=== PATIENT | male | born 2000 | race Caucasian/White ===

== ENCOUNTER 2018-05-31 19:47 | Emergency (ER) | payer OTHER ==
[2018-05-31 20:40] LABS: BILIRUBIN,URINE NEGATIVE (NEGATIVE); GLUCOSE, URINE (UA) NEGATIVE (NEGATIVE); KETONES,URINE (UA) NEGATIVE (NEGATIVE); LEUKOCYTE ESTERASE, URINE NEGATIVE (NEGATIVE); NITRITE,URINE NEGATIVE (NEGATIVE); OCCULT BLOOD,URINE NEGATIVE (NEGATIVE); PROTEIN,URINE NEGATIVE (NEGATIVE); UROBILINOGEN,URINE 0.2 (NORMAL) E.U./dL (NORMAL)
[2018-05-31 20:44] LABS: CLARITY,URINE CLEAR (CLEAR)
--- NOTE | 2018-05-31 22:18 | ED Physician Documentation ---
PD HPI MALE - Stated complaint Stated Complaint: MALE - Chief complaint Chief Complaint: General - History obtained from History obtained from: Patient - History of Present Illness Timing - onset: How many weeks ago (1) Timing - duration: Weeks (1) Timing - details: Gradual onset, Still present Associated symptoms: Testiclar pain. No: Dysuria, Urinary frequency, Discharge, Genital sore / lesion, Scrotal swelling, Abdominal pain PD HPI MALE CONTRIB FACTORS: Sexually active (infrequent, not recent) Similar symptoms before: Has not had sx before Recently seen: Not recently seen Review of Systems Constitutional: denies: Fever, Chills Throat: denies: Sore throat : reports: Testicular pain. denies: Discharge, Testicular mass Skin: denies: Rash, Lesions PD PAST MEDICAL HISTORY - Past Medical History Cardiovascular: None : None - Present Medications Home Medications: Ambulatory Orders Medication Instructions Recorded Confirmed Doxycycline Hyclate 100 mg PO BID #20 capsule 05/31/18 Naproxen 500 mg PO BID #20 tablet 05/31/18 - Allergies Allergies/Adverse Reactions: Allergies Allergy/AdvReac Type Severity Reaction Status Date / Time Penicillins Allergy Hives Verified 05/31/18 20:29 PD ED PE NORMAL - Vitals Vital signs reviewed: Yes - General General: Alert and oriented X 3, Well developed/nourished, Other (uncomfortable with palpation or movement of scrotum on left side. ) - HEENT HEENT: Pharynx benign - Neck Neck: Supple, no meningeal sign, No adenopathy - Abdomen Abdomen: Soft, Non tender - Male Male : Other (normal cremaster reflex. Testicles symmetric size and with normal lie. Teste on left not tender itself, but there is lot of tenderness behind and just above it. No hernia felt at inguinal area. Right side is normal and not tender. ) - Rectal Rectal: Deferred - Back Back: No CVA TTP - Derm Derm: Normal color, Warm and dry, No rash Results - Vitals Vitals: Vital Signs - 24 hr 05/31/18 23:00 Heart Rate 86 Respiratory 16 Rate Blood Pressure 121/73 O2 Saturation 100 Oxygen O2 Source Room air - Labs Labs: Laboratory Tests 05/31/18 20:35 Urine Color YELLOW Urine Clarity CLEAR Urine pH 6.0 Ur Specific Bradley >=1.030 H Urine Protein NEGATIVE Urine Glucose (UA) NEGATIVE Urine Ketones NEGATIVE Urine Occult Blood NEGATIVE Urine Nitrite NEGATIVE Urine Bilirubin NEGATIVE Urine Urobilinogen 0.2 (NORMAL) Ur Leukocyte Esterase NEGATIVE Ur Microscopic Review NOT INDICATED Urine Culture Comments NOT INDICATED PD MEDICAL DECISION MAKING - ED course Complexity details: considered differential (tender at epididymis. Testicle not tender. Bedside U/S showing good blood flow. ), d/w patient Departure - Departure Disposition: 01 Home, Self Care Clinical Impression: Epididymitis Condition: Stable Record reviewed to determine appropriate education?: Yes Instructions: ED Epididymitis Follow-Up: Joycelyn Joyner MD [Primary Care Provider] - Prescriptions: Doxycycline Hyclate 100 mg PO BID #20 capsule Naproxen 500 mg PO BID #20 tablet Comments: This seems like Epididymitis. The testicle itself seems normal on ultrasound. Epididymitis can be inflammatory or related to injury and would get treated with anti-inflammatories and scrotal support. Sometimes it is infectious we will add on doxycycline antibiotic as well. Recheck if not better over the next several days to week. Discharge Date/Time: 05/31/18 23:08
[2018-05-31 23:04] VITALS: BP 121/73
[2018-05-31] MEDS: NAPROXEN 250 MG TABLET PO STA (23:04)
[2018-05-31] MEDS: DOXYCYCLINE 100 MG TABLET PO STA (23:05)
== END 2018-05-31 23:08 | disposition home or self-care (01) ==
LOC: ED 19:47
DX: N45.1 Epididymitis (principal)
CPT/HCPCS: 81001; 81003; 87086; 99283

== ENCOUNTER 2018-12-28 15:15 | Outpatient (CLI) | payer OTHER ==
[2018-12-28 22:21] LABS: TRICHOMONAS VAGINALIS DNA NEGATIVE (NEGATIVE)
[2018-12-29 11:06] LABS: HIV AG/AB 4TH GEN NON-REACTIVE (NON-REACTIVE)
[2018-12-29 14:07] LABS: HEPATITIS C ANTIBODY NON-REACTIVE (NON-REACTIVE)
[2018-12-30 13:46] LABS: HSV 1 IGG TYPE SPECIFIC AB <0.90 index; HSV 2 IGG TYPE SPECIFIC AB <0.90 index
== END 2018-12-28 23:59 | disposition home or self-care (01) ==
LOC: LAB.WCP 15:15
PROVIDERS: ATTEND Family Medicine
DX: Z11.3 Encounter for screening for infections with a predominantly sexual mode of transmission (principal)
CPT/HCPCS: 36415; 81599; 86592; 86695; 86696; 86803; 87389; 87491; 87591; 87661